=== PATIENT | male | born 1955 | race Caucasian/White ===

== ENCOUNTER 2019-11-15 06:49 | Day surgery (SDC) | payer MEDICARE ==
[~2019-11-15] VITALS: Ht 170.2 cm; Wt 82.1 kg
[~2019-11-15 06:49] MED LIST: LOSA25 PO; OMEP20ER PO; TAMS.4ER PO
== END 2019-11-15 08:35 | disposition home or self-care (01) ==
LOC: ORSCSDS 06:49
PROVIDERS: Ophthalmology
PROC: 08RK3JZ Replacement of Left Lens with Synthetic Substitute, Percutaneous Approach (ICD-10-PCS; principal; 2019-11-15 08:00)
DX: H25.12 Age-related nuclear cataract, left eye (principal); H21.81 Floppy iris syndrome; I10 Essential (primary) hypertension; K21.9 Gastro-esophageal reflux disease without esophagitis; Z79.899 Other long term (current) drug therapy
CPT/HCPCS: J2001; J2250; J3010; J3301; J7040; V2632

== ENCOUNTER 2019-12-13 06:09 | Day surgery (SDC) | payer MEDICARE ==
[~2019-12-13] VITALS: Ht 170.2 cm; Wt 80.8 kg
== END 2019-12-13 08:23 | disposition home or self-care (01) ==
LOC: ORSCSDS 06:09
PROVIDERS: Ophthalmology
PROC: 08RJ3JZ Replacement of Right Lens with Synthetic Substitute, Percutaneous Approach (ICD-10-PCS; principal; 2019-12-13 07:30)
DX: H25.11 Age-related nuclear cataract, right eye (principal); H21.81 Floppy iris syndrome; I10 Essential (primary) hypertension; K21.9 Gastro-esophageal reflux disease without esophagitis; Z79.899 Other long term (current) drug therapy
CPT/HCPCS: J2001; J2250; J3010; J3301; J7040; V2632

== ENCOUNTER 2021-06-28 16:46 | Inpatient (IN) | payer MEDICARE ==
[~2021-06-28] VITALS: Ht 170.2 cm; Wt 75.8 kg
[~2021-06-28 16:46] MED LIST changes: +LOSARTAN POTAS100 M1 PO
[2021-06-28 17:10] LABS: Calcium, Ionized (POC) 1.14 mmol/L (1.10-1.46); Chloride (POC) 107 mmol/L (98-108); Creatinine (POC) 1.3 mg/dL (0.8-1.3); Glucose (ISTAT POC) 166 mg/dL (70-99); Hemoglobin (POC) 16.3 g/dL (13.5-17.5); Sodium (POC) 140 mmol/L (135-148); Total CO2 (POC) 18 mmol/L (21-32)
[2021-06-28 17:16] LABS: BASOPHILS ABSOLUTE AUTO 0.09 K/mm3 (0.00-0.23); BASOPHILS PERCENT AUTO 0 % (0-2); EOSINOPHILS ABSOLUTE AUTO 0.17 K/mm3 (0.00-0.68); EOSINOPHILS PERCENT AUTO 1 % (0-6); Hematocrit 48.8 % (37.0-53.0); IMMATURE GRAN ABSOLUTE AUTO 0.09 K/mm3 (0.00-0.10); IMMATURE GRAN PERCENT AUTO 0 % (0-1); LYMPHOCYTES ABSOLUTE AUTO 3.83 K/mm3 (0.84-5.20); LYMPHOCYTES PERCENT AUTO 19 % (21-46); MONOCYTES ABSOLUTE AUTO 0.84 K/mm3 (0.16-1.47); MONOCYTES PERCENT AUTO 4 % (4-13); Mean Corpuscular HGB 28.6 pg (26.0-34.0); Mean Corpuscular HGB Conc 32.8 g/dL (31.5-36.5); Mean Corpuscular Volume 87 fL (80-100); Mean Platelet Volume 9.5 fL (9.1-12.4); NEUTROPHILS ABSOLUTE AUTO 15.09 K/mm3 (1.96-9.15); NEUTROPHILS PERCENT AUTO 75 % (41-73); Platelet Count 308 K/mm3 (150-400); RDW Coefficient Variation 12.8 % (11.7-14.2); RDW Standard Deviation 40.3 fL (35.1-46.3); White Blood Cell Count 20.11 K/mm3 (4.00-11.30)
[2021-06-28 17:35] LABS: International Normalized Ratio 1.07; Prothrombin Time Results 11.2 Sec (9.7-11.5)
[2021-06-28 17:43] LABS: Alanine Aminotransfer (ALT/SGP 20 U/L (12-78); Albumin, Blood 3.4 g/dL (3.4-5.0); Albumin/Globulin Ratio 0.7 (0.8-1.8); Alk Phos 70 U/L (50-136); Anion Gap 13 mmol/L (6-16); Aspartate Aminotrans (AST/SGOT 20 U/L (12-37); Bilirubin, Total 0.7 mg/dL (0.1-1.0); Blood Urea Nitrogen 16 mg/dL (8-24); Bun/Creatinine Ratio 12.6 (12.0-20.0); CO2, Blood 18 mmol/L (21-32); Calcium, Blood 9.5 mg/dL (8.5-10.1); Chloride, Blood 108 mmol/L (98-108); Creatinine, Blood 1.27 mg/dL (0.60-1.20); Globulin, Blood 4.7 g/dL (2.2-4.0); Glomerular Filtration Rate 56 (60-); Glucose, Blood 176 mg/dL (70-99); Sodium, Blood 139 mmol/L (136-145); Total Protein, Blood 8.1 g/dL (6.4-8.2); Troponin I <0.015 ng/mL (0.000-0.040)
[2021-06-29 03:56] LABS: BASOPHILS ABSOLUTE AUTO 0.02 K/mm3 (0.00-0.23); BASOPHILS PERCENT AUTO 0 % (0-2); EOSINOPHILS PERCENT AUTO 0 % (0-6); Hematocrit 44.5 % (37.0-53.0); Hemoglobin 15.1 g/dL (13.5-17.5); IMMATURE GRAN ABSOLUTE AUTO 0.03 K/mm3 (0.00-0.10); IMMATURE GRAN PERCENT AUTO 0 % (0-1); LYMPHOCYTES ABSOLUTE AUTO 0.68 K/mm3 (0.84-5.20); LYMPHOCYTES PERCENT AUTO 5 % (21-46); MONOCYTES ABSOLUTE AUTO 0.64 K/mm3 (0.16-1.47); MONOCYTES PERCENT AUTO 5 % (4-13); Mean Corpuscular HGB 29.2 pg (26.0-34.0); Mean Corpuscular HGB Conc 33.9 g/dL (31.5-36.5); Mean Corpuscular Volume 86 fL (80-100); Mean Platelet Volume 9.5 fL (9.1-12.4); NEUTROPHILS ABSOLUTE AUTO 11.54 K/mm3 (1.96-9.15); NEUTROPHILS PERCENT AUTO 89 % (41-73); Platelet Count 272 K/mm3 (150-400); RDW Coefficient Variation 12.9 % (11.7-14.2); RDW Standard Deviation 39.9 fL (35.1-46.3); Red Blood Cell Count 5.18 M/mm3 (4.30-5.90); White Blood Cell Count 12.91 K/mm3 (4.00-11.30)
[2021-06-29 04:31] LABS: Albumin/Globulin Ratio 0.7 (0.8-1.8); Bilirubin, Direct 0.1 mg/dL (0.0-0.3); Bilirubin, Indirect 0.6 mg/dL (0.1-0.7); Bilirubin, Total 0.7 mg/dL (0.1-1.0); Bun/Creatinine Ratio 11.3 (12.0-20.0); Calcium, Blood 9.4 mg/dL (8.5-10.1); Creatinine, Blood 1.24 mg/dL (0.60-1.20); Globulin, Blood 4.4 g/dL (2.2-4.0); Total Protein, Blood 7.4 g/dL (6.4-8.2)
--- NOTE | 2021-06-29 09:00 | NUR ---
Patient awakened and he is alert and oriented and independent in bed. he is getting up to do am care prior to breakfast. Right TR band site has clear opsite with sterile gauze and replaced with bandaid. Patient in SR 70.
--- NOTE | 2021-06-29 11:00 | NUR ---
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 Patient then was on phone with for a little bit. He remains in SR 70 and independent in room, He is now PCU status. He remains on RA and sats >90%. TR Band site C/D/I and no swelling or hematoma.
--- NOTE | 2021-06-29 13:38 | NUR ---
No significant changes with patient. He is resting in bed watching TV.
--- NOTE | 2021-06-29 16:00 | NUR ---
Patient has remains independent in room. He got up and took a shower and currently resting in bed. Remains in SR 70 and denies and chest pain today. He has tolerated small amounts of food and denies and current needs.
--- NOTE | 2021-06-29 18:00 | NUR ---
Lopressor given as scheduled. No significant changes with patient. He remains independent in room. Denies any chest pain.
--- NOTE | 2021-06-29 19:25 | NUR ---
CARE ASSUMPTION PT IS SITTING IN BED DERNYING ANY PAIN OR NAUSEA. 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 BP MILDLY ELEVATED AND O2 SATS >92% ON RM AIR.
[2021-06-30 01:15] LABS: BASOPHILS ABSOLUTE AUTO 0.02 K/mm3 (0.00-0.23); BASOPHILS PERCENT AUTO 0 % (0-2); EOSINOPHILS ABSOLUTE AUTO 0.01 K/mm3 (0.00-0.68); EOSINOPHILS PERCENT AUTO 0 % (0-6); Hematocrit 45.3 % (37.0-53.0); Hemoglobin 15.2 g/dL (13.5-17.5); IMMATURE GRAN ABSOLUTE AUTO 0.04 K/mm3 (0.00-0.10); IMMATURE GRAN PERCENT AUTO 0 % (0-1); LYMPHOCYTES ABSOLUTE AUTO 1.22 K/mm3 (0.84-5.20); LYMPHOCYTES PERCENT AUTO 10 % (21-46); MONOCYTES ABSOLUTE AUTO 0.81 K/mm3 (0.16-1.47); MONOCYTES PERCENT AUTO 7 % (4-13); Mean Corpuscular HGB Conc 33.6 g/dL (31.5-36.5); Mean Corpuscular Volume 87 fL (80-100); Mean Platelet Volume 9.4 fL (9.1-12.4); NEUTROPHILS ABSOLUTE AUTO 10.41 K/mm3 (1.96-9.15); NEUTROPHILS PERCENT AUTO 83 % (41-73); Platelet Count 273 K/mm3 (150-400); RDW Coefficient Variation 13.2 % (11.7-14.2); RDW Standard Deviation 41.4 fL (35.1-46.3); Red Blood Cell Count 5.24 M/mm3 (4.30-5.90); White Blood Cell Count 12.51 K/mm3 (4.00-11.30)
[2021-06-30 01:30] LABS: Bun/Creatinine Ratio 11.5 (12.0-20.0); Calcium, Blood 9.2 mg/dL (8.5-10.1); Creatinine, Blood 1.31 mg/dL (0.60-1.20); Potassium, Blood 3.9 mmol/L (3.5-5.5)
--- NOTE | 2021-06-30 05:06 | NUR ---
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 PT DENIED ANY CP OR PRESSURE THIS SHIFT. NO NAUSEA THIS SHIFT. PT NPO SINCE 2329. BP MILDLY ELEVATED W SBP IN THE 140'S. O2 SATS >90% ON RM AIR. TELE SHOWING SR IN THE 60'S THIS SHIFT. PT SLEPT COMFORTABLY IN BED FOR MOST OF THE SHIFT. NS RUNNING AT 50ML/HR PER ORDER SINCE 2329. WILL REPORT TO ONCOMING RN.
--- NOTE | 2021-06-30 11:54 | NUR ---
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
--- NOTE | 2021-06-30 13:22 | NUR ---
PATIENT IS S/P CORONARY ANGIOGRAM TO THE RCA, INTENDED TO DO PCI, IFR PERFORMED AND DID NOT INDICATE NEED FOR INTERVENTION. TR BAND TO THE RIGHT RADIAL WITH 20 ML OF AIR IN THE BAND. PATIENT WILL BE WATCHED IN THE [facility] FOR AN HOUR AND THEN TAKEN TO PCU #2. PLACED ON THE MONITOR AND CALL LIGHT IN REACH. HALTENT BECAME NAUSEATED AND DR RAYA ORDERED ZOFRAN 4 MG IV. THIS WAS GIVE TO THE PATIENT AND THE PATIENT WAS MONITORED.
--- NOTE | 2021-06-30 13:29 | NUR ---
4 ML OF AIR RELEASED FROM THE TR BAND.
--- NOTE | 2021-06-30 14:58 | NUR ---
UPDATE ASSUMED CARE. PT ALERT AND ORIENTED. PT ABLE TO AMBULATE FROM WC TO BED S/P ANGIO INDEPENDENTLY. VS STABLE. O2 SATS REMAIN ABOVE 90% ON RA. PT DENIES ANY PAIN. RIGHT RADIAL SITE WITH TR BAND IN PLACE AT 18ML OF AIR. NO BRUISING, BLEEDING, OR HEMATOMA NOTED. PT ORIENTED TO ROOM. NS INFUSING PER ORDERS. PLAN TO DISCHARGE HOME AFTER RIGHT RADIAL SITE IS RECOVERED.
[2021-06-30] MEDS ORDERED: ATOR40TA PO (15:08)
[2021-06-30] MEDS ORDERED: ASPI81CH PO (15:08)
[2021-06-30] MEDS ORDERED: METO25 PO (15:08)
[2021-06-30] MEDS ORDERED: CLOP75 PO (15:08)
[2021-06-30] MEDS ORDERED: NITR.4SL SL (15:09)
--- NOTE | 2021-06-30 17:15 | NUR ---
UPDATE TR BAND FULLY RECOVERED PER PROTOCOL. PT EDUCATED ON RESTRICTIONS WITH RIGHT ARM. DC INSTRUCTIONS PROVIDED TO PT AND PT EDUCATED ON MEDICATION CHANGES. ALL QUESTIONS ANSWERED. PT AWAITING TO COME IN AND THEN HE WILL BE TAKEN OUT BY WC.
== END 2021-06-30 17:55 | disposition home or self-care (01) | DRG 247 ==
LOC: ER 16:46 → ICUW 17:07 → PCU 06-30 12:38
PROVIDERS: Emergency Medicine; ADMIT Internal Medicine Cardiovascular Disease
PROC: 027035Z Dilation of Coronary Artery, One Artery with Two Drug-eluting Intraluminal Devices, Percutaneous Approach (ICD-10-PCS; principal; 2021-06-28)
PROC: 4A023N7 Measurement of Cardiac Sampling and Pressure, Left Heart, Percutaneous Approach (ICD-10-PCS; 2021-06-28)
PROC: B2111ZZ Fluoroscopy of Multiple Coronary Arteries using Low Osmolar Contrast (ICD-10-PCS; 2021-06-28)
PROC: 4A033BC Measurement of Arterial Pressure, Coronary, Percutaneous Approach (ICD-10-PCS; 2021-06-30)
PROC: B2111ZZ Fluoroscopy of Multiple Coronary Arteries using Low Osmolar Contrast (ICD-10-PCS; 2021-06-30)
PROC: 4A023N7 Measurement of Cardiac Sampling and Pressure, Left Heart, Percutaneous Approach (ICD-10-PCS; 2021-06-30)
DX: I21.29 ST elevation (STEMI) myocardial infarction involving other sites (principal); I10 Essential (primary) hypertension; Z98.890 Other specified postprocedural states; Z79.899 Other long term (current) drug therapy
CPT/HCPCS: 36415; 71045; 76937; 80047; 80048; 80053; 80076; 83735; 83880; 84484; 85014; 85025; 85347; 85610; 92978; 93005; 93010; 93306; 93454; 93458; 96374; 96375; 99152; 99153; 99285-25; A9270; C1725; C1769; C1874; C1887; C1894; C9600; C9606; J0360; J0461; J0780; J1644; J2250; J2270; J2370; J2405; J3010; J3246; J3480; J7030; J7040; J7050; Q9967

== ENCOUNTER 2024-04-04 02:17 | Day surgery (SDC) | payer OTHER ==
[~2024-04-04] VITALS: Wt 83.6 kg
[~2024-04-04 02:17] MED LIST changes: +ASPI81CH PO; +ATOR40TA PO; +CLOP75 PO; +INFLECTRA100 MG IV; +METO25 PO; +NITR.4SL SL; +PANT20; +PROBIOTIC1 EA14 PO; +THERA-D2000 UNIT PO
[2024-04-04] MEDS ORDERED: Infliximab-DYYB 450 MG in NS 250 ML IV SCH (06:00)
[2024-04-04] MEDS ORDERED: ASPI81CH (08:18)
[2024-04-04 08:19] VITALS: BP 159/86
== END 2024-04-04 10:15 | disposition home or self-care (01) ==
LOC: ATC 02:17
DX: K50.80 Crohn's disease of both small and large intestine without complications (principal); K22.70 Barrett's esophagus without dysplasia; I25.10 Atherosclerotic heart disease of native coronary artery without angina pectoris; I12.9 Hypertensive chronic kidney disease with stage 1 through stage 4 chronic kidney disease, or unspecified chronic kidney disease; N18.9 Chronic kidney disease, unspecified; Z79.02 Long term (current) use of antithrombotics/antiplatelets; Z79.899 Other long term (current) drug therapy
CPT/HCPCS: 96413; 96415; J7050; Q5103

== ENCOUNTER 2024-05-29 02:25 | Day surgery (SDC) | payer OTHER ==
[~2024-05-29] VITALS: Wt 83.5 kg
[~2024-05-29 02:25] MED LIST changes: +ASPI81CH
[2024-05-29] MEDS ORDERED: Infliximab-DYYB 450 MG in NS 250 ML IV SCH (06:00)
[2024-05-29 07:57] VITALS: BP 161/87
--- NOTE | 2024-05-29 08:35 | NUR ---
PT DECLINES PRE MEDS
== END 2024-05-29 10:36 | disposition home or self-care (01) ==
LOC: ATC 02:25
DX: K50.80 Crohn's disease of both small and large intestine without complications (principal); K21.9 Gastro-esophageal reflux disease without esophagitis; I25.10 Atherosclerotic heart disease of native coronary artery without angina pectoris; I25.2 Old myocardial infarction; I12.9 Hypertensive chronic kidney disease with stage 1 through stage 4 chronic kidney disease, or unspecified chronic kidney disease; N18.9 Chronic kidney disease, unspecified; K22.70 Barrett's esophagus without dysplasia; Z79.899 Other long term (current) drug therapy
CPT/HCPCS: 96413; 96415; J7050; Q5103

== ENCOUNTER 2024-07-24 03:53 | Day surgery (SDC) | payer OTHER ==
[2024-07-24] MEDS ORDERED: Infliximab-DYYB 450 MG in NS 250 ML IV SCH (06:00)
[2024-07-24 08:10] VITALS: BP 146/95
== END 2024-07-24 10:40 | disposition home or self-care (01) ==
LOC: ATC 03:53
DX: K50.90 Crohn's disease, unspecified, without complications (principal); K21.9 Gastro-esophageal reflux disease without esophagitis; K22.70 Barrett's esophagus without dysplasia; I12.9 Hypertensive chronic kidney disease with stage 1 through stage 4 chronic kidney disease, or unspecified chronic kidney disease; N18.9 Chronic kidney disease, unspecified; I25.10 Atherosclerotic heart disease of native coronary artery without angina pectoris; I25.2 Old myocardial infarction; Z79.02 Long term (current) use of antithrombotics/antiplatelets; Z79.899 Other long term (current) drug therapy
CPT/HCPCS: 96413; 96415; J7050; Q5103

== ENCOUNTER 2024-09-18 02:07 | Day surgery (SDC) | payer OTHER ==
[2024-09-18] MEDS ORDERED: Infliximab-DYYB 450 MG in NS 250 ML IV SCH (06:00)
[2024-09-18] MEDS ORDERED: Hydrocortisone Sod Succinate 100 MG Vial IV SCH (06:55)
[2024-09-18] MEDS ORDERED: DiphenhydrAMINE HCL 25 MG Cap PO PRN (06:55)
[2024-09-18] MEDS ORDERED: Acetaminophen 325 MG TABLET PO PRN (06:55)
[2024-09-18 08:08] VITALS: BP 148/82
== END 2024-09-18 10:46 | disposition home or self-care (01) ==
LOC: ATC 02:07
DX: K50.80 Crohn's disease of both small and large intestine without complications (principal); K22.70 Barrett's esophagus without dysplasia; K21.9 Gastro-esophageal reflux disease without esophagitis; I25.2 Old myocardial infarction; I25.10 Atherosclerotic heart disease of native coronary artery without angina pectoris; I12.9 Hypertensive chronic kidney disease with stage 1 through stage 4 chronic kidney disease, or unspecified chronic kidney disease; N18.9 Chronic kidney disease, unspecified; Z79.899 Other long term (current) drug therapy
CPT/HCPCS: 96413; 96415; J7050; Q5103

== ENCOUNTER 2024-11-13 05:54 | Day surgery (SDC) | payer OTHER ==
[2024-11-13] MEDS ORDERED: Infliximab-DYYB 450 MG in NS 250 ML IV SCH (06:00)
[2024-11-13] MEDS ORDERED: Acetaminophen 325 MG TABLET PO SCH (07:05)
[2024-11-13] MEDS ORDERED: DiphenhydrAMINE HCL 25 MG Cap PO SCH (07:05)
[2024-11-13] MEDS ORDERED: Hydrocortisone Sod Succinate 100 MG Vial IV SCH (07:05)
[2024-11-13 08:09] VITALS: BP 135/93
== END 2024-11-13 11:09 | disposition home or self-care (01) ==
LOC: ATC 05:54
DX: K50.80 Crohn's disease of both small and large intestine without complications (principal); I25.10 Atherosclerotic heart disease of native coronary artery without angina pectoris; I12.9 Hypertensive chronic kidney disease with stage 1 through stage 4 chronic kidney disease, or unspecified chronic kidney disease; N18.9 Chronic kidney disease, unspecified; K21.9 Gastro-esophageal reflux disease without esophagitis; Z79.899 Other long term (current) drug therapy
CPT/HCPCS: 96413; 96415; J7050; Q5103

== ENCOUNTER 2025-01-08 04:10 | Day surgery (SDC) | payer OTHER ==
[~2025-01-08] VITALS: Wt 84.3 kg
[2025-01-08] MEDS ORDERED: Infliximab-DYYB 450 MG in NS 250 ML IV SCH (06:00)
[2025-01-08 07:34] VITALS: BP 144/84
== END 2025-01-08 10:10 | disposition home or self-care (01) ==
LOC: ATC 04:10
DX: K50.80 Crohn's disease of both small and large intestine without complications (principal); I12.9 Hypertensive chronic kidney disease with stage 1 through stage 4 chronic kidney disease, or unspecified chronic kidney disease; N18.9 Chronic kidney disease, unspecified; I25.10 Atherosclerotic heart disease of native coronary artery without angina pectoris; K21.9 Gastro-esophageal reflux disease without esophagitis; I25.2 Old myocardial infarction; Z79.899 Other long term (current) drug therapy
CPT/HCPCS: 96413; 96415; J7050; Q5103

== ENCOUNTER 2025-02-08 11:59 | Day surgery (SDC) | payer OTHER ==
[~2025-02-08] VITALS: Ht 170.2 cm; Wt 81.7 kg
[2025-02-08] MEDS ORDERED: Ondansetron HCl 2 MG / ML 2ML Vial ONE (13:53)
[2025-02-08 14:33] VITALS: BP 119/90
--- NOTE | 2025-02-08 14:37 | NUR ---
02/08/25 Barbara7 Yesenia Coker LATE ENTRY PT'S VSS THROUGHOUT PROCEDURE. RN ACCIDENTLY DELETED VS INFORMATION PRIOR TO PRINTING.
== END 2025-02-08 14:20 | disposition home or self-care (01) ==
LOC: ORSCSDS 11:59
PROVIDERS: Specialist
PROC: 0DBH8ZX Excision of Cecum, Via Natural or Artificial Opening Endoscopic, Diagnostic (ICD-10-PCS; principal; 2025-02-08 13:30)
PROC: 0DBK8ZX Excision of Ascending Colon, Via Natural or Artificial Opening Endoscopic, Diagnostic (ICD-10-PCS; principal; 2025-02-08 13:30)
PROC: 0DBL8ZX Excision of Transverse Colon, Via Natural or Artificial Opening Endoscopic, Diagnostic (ICD-10-PCS; principal; 2025-02-08 13:30)
PROC: 0DBM8ZX Excision of Descending Colon, Via Natural or Artificial Opening Endoscopic, Diagnostic (ICD-10-PCS; principal; 2025-02-08 13:30)
PROC: 0DBN8ZX Excision of Sigmoid Colon, Via Natural or Artificial Opening Endoscopic, Diagnostic (ICD-10-PCS; principal; 2025-02-08 13:30)
DX: K50.10 Crohn's disease of large intestine without complications (principal); K51.40 Inflammatory polyps of colon without complications; K64.8 Other hemorrhoids; K52.9 Noninfective gastroenteritis and colitis, unspecified; K52.1 Toxic gastroenteritis and colitis; I12.9 Hypertensive chronic kidney disease with stage 1 through stage 4 chronic kidney disease, or unspecified chronic kidney disease; N18.9 Chronic kidney disease, unspecified; K22.70 Barrett's esophagus without dysplasia; Z79.899 Other long term (current) drug therapy
CPT/HCPCS: 88305; J2405; J2704; J7120

== ENCOUNTER 2025-03-06 01:53 | Day surgery (SDC) | payer OTHER ==
[~2025-03-06 01:53] MED LIST changes: -FINA5 PO
[2025-03-06] MEDS ORDERED: Infliximab-DYYB 450 MG in NS 250 ML IV SCH (06:00)
[2025-03-06] MEDS ORDERED: FINA5 PO (15:04)
[2025-03-06 15:05] VITALS: BP 129/69
== END 2025-03-06 17:57 | disposition home or self-care (01) ==
LOC: ATC 01:53
DX: K50.80 Crohn's disease of both small and large intestine without complications (principal); I12.9 Hypertensive chronic kidney disease with stage 1 through stage 4 chronic kidney disease, or unspecified chronic kidney disease; N18.9 Chronic kidney disease, unspecified; I25.10 Atherosclerotic heart disease of native coronary artery without angina pectoris; I25.2 Old myocardial infarction; K21.9 Gastro-esophageal reflux disease without esophagitis; K22.70 Barrett's esophagus without dysplasia; Z79.82 Long term (current) use of aspirin; Z79.899 Other long term (current) drug therapy
CPT/HCPCS: 96413; 96415; J7050; Q5103

== ENCOUNTER → 2025-03-06 | Outpatient (CLI) | payer OTHER ==
[~2025-03-06] MED LIST changes: +FINA5 PO
[2025-03-07 18:19] LABS: CALPROTECTIN,FECAL 67 ug/g (<=49)
== END ==
LOC: LAB SHORT 11:10 → LAB 11:10
PROVIDERS: Physician Assistant Medical
DX: K50.80 Crohn's disease of both small and large intestine without complications (principal)
CPT/HCPCS: 83993

== ENCOUNTER 2025-05-07 00:55 | Day surgery (SDC) | payer OTHER ==
[~2025-05-07 00:55] MED LIST changes: +FINA5 PO; +Infliximab-DYYB 450 MG in NS 250 ML IV SCH
[2025-05-07 07:51] VITALS: BP 142/75
== END 2025-05-07 10:24 | disposition home or self-care (01) ==
LOC: ATC 00:55
DX: K50.80 Crohn's disease of both small and large intestine without complications (principal); I25.10 Atherosclerotic heart disease of native coronary artery without angina pectoris; K21.9 Gastro-esophageal reflux disease without esophagitis; N18.9 Chronic kidney disease, unspecified; I12.9 Hypertensive chronic kidney disease with stage 1 through stage 4 chronic kidney disease, or unspecified chronic kidney disease; Z79.899 Other long term (current) drug therapy
CPT/HCPCS: 96365; 96366; 96413; 96415; J7050; Q5103

== ENCOUNTER 2025-07-02 02:30 | Day surgery (SDC) | payer OTHER ==
[~2025-07-02 02:30] MED LIST changes: -Infliximab-DYYB 450 MG in NS 250 ML IV SCH
[2025-07-02] MEDS ORDERED: Infliximab-DYYB 450 MG in NS 250 ML IV SCH (06:00)
[2025-07-02 09:20] VITALS: BP 142/90
== END 2025-07-02 10:38 | disposition home or self-care (01) ==
LOC: ATC 02:30
DX: K50.80 Crohn's disease of both small and large intestine without complications (principal); I10 Essential (primary) hypertension; I25.10 Atherosclerotic heart disease of native coronary artery without angina pectoris; K21.9 Gastro-esophageal reflux disease without esophagitis; Z79.899 Other long term (current) drug therapy
CPT/HCPCS: 96413; 96415; J7050; Q5103